=== PATIENT | male | born 1975 ===

== ENCOUNTER 2023-04-21 10:25 | Outpatient (CLI) | payer OTHER, SELFPAY ==
--- NOTE | ~2023-04-21 | MR_ITS ---
MRI of the pelvis CLINICAL HISTORY: Right hip/buttock pain TECHNIQUE: Coronal T1-weighted and T2 fat-sat images, sagittal T1-weighted and T2 fat-sat images, and axial T1-weighted and T2 fat-sat images were performed. FINDINGS: There is no fracture, avascular necrosis, or transient osteoporosis of either hip. Bone mar row signals the proximal femora and visualized pelvic bones are unremarkable. There is mild to modera te degenerative change of the right hip joint, with small femoral head neck junction osteophytes and diffuse moderate chondromalacia. There is minimal degenerative change of the left hip joint, with mil d diffuse chondromalacia. Minimal bilateral hip joint effusions are present, presumably reactive. Pos sible small superolateral left acetabular labral tear. No definite right acetabular labral tear ident ified. Visualized musculature about the pelvis is unremarkable. No muscle atrophy or edema. Visualized tendo ns are intact. No evidence for bursitis. No soft tissue mass or fluid collection identified. IMPRESSION: Mild to moderate degenerative change of the right hip joint, as detailed above. Minimal degenerative change of the left hip joint, as detailed above. Possible small superolateral left acetabular labral tear. Reviewed, dictated and finalized at location .
== END 2023-04-21 10:26 ==
PROVIDERS: PCP Orthopaedic Surgery; Visit Provider Orthopaedic Surgery
DX: M25.551 Pain in right hip (principal)
CPT/HCPCS: 72195